=== PATIENT | male | born 1970 | race American Indian/Alaskan Native ===

== ENCOUNTER 2017-07-21 13:54 | Emergency (ER) | payer OTHER ==
--- NOTE | 2017-07-21 14:12 | ED PDOC ---
Arrival/HPI - General Chief Complaint: Chest Pain Time Seen by Provider: 07/21/17 13:56 Historian: Patient - Critical Care Narrative Critical Care (Text): 07/21/17 14:09 47 year old male wth history of asthma, tobacco and marijuana smoker presented with chest pain that started last night at 11 pm. Pain is localized to left chest and non radiating. Pt describes as soreness, sharp. Denies any shortness of breah, cough or fever. He woke up with similar pain this morning. Past Medical History - Provider Review Nursing Documentation Reviewed: Yes - Travel History Have you recently traveled outside [place] w/in the past 3 mons?: No - Past History Past History: Non-Contributing (Asthma) - Infectious Disease Hx of Infectious Diseases: None - Pulmonary Hx Asthma: Yes - Renal Hx Renal Disorder: No - Musculoskeletal/Rheumatological Hx Musculoskeletal Disorders: No - Genitourinary/Gynecological Hx Genitourinary Disorders: No - Psychiatric Hx Psychophysiologic Disorder: No Hx Substance Use: Yes - Anesthesia Hx Anesthesia: No Family/Social History Family/Social History: Diabetes Smoking Status: Heavy Smoker > 10 Cigarettes Daily Hx Alcohol Use: No Hx Substance Use: Yes Substance used: Marijuana Allergies/Home Meds Allergies/Adverse Reactions: Allergies No Known Allergies Allergy (Verified 07/21/17 14:03) Home Medications: Home Meds Medication Instructions Recorded Confirmed No Known Home Med 07/21/17 07/21/17 Review of Systems - Physician Review All systems were reviewed & negative as marked: Yes - Review of Systems Constitutional: Normal Eyes: Normal ENT: Normal Respiratory: Normal Cardiovascular: Chest Pain Gastrointestinal: Normal Genitourinary Male: Normal Musculoskeletal: Normal Skin: Normal Neurological: Normal Endocrine: Normal Hemo/Lymphatic: Normal Psychiatric: Normal Physical Exam Vital Signs Temp Pulse Resp BP Pulse Ox 07/21/17 15:48 70 18 127/86 98 07/21/17 14:00 98.3 F 77 16 150/85 98 07/21/17 13:54 99.1 F 77 18 150/85 99 Temperature: Afebrile Blood Pressure: Normal Pulse: Regular Respiratory Rate: Normal Appearance: Positive for: Well-Appearing, Non-Toxic, Comfortable Pain Distress: None Mental Status: Positive for: Alert and Oriented X 3 - Systems Exam Head: Present: Atraumatic, Normocephalic Pupils: Present: PERRL Extroacular Muscles: Present: EOMI Conjunctiva: Present: Normal Mouth: Present: Moist Mucous Membranes Neck: Present: Normal Range of Motion Respiratory/Chest: Present: Clear to Auscultation, Good Air Exchange. No: Respiratory Distress, Accessory Muscle Use Cardiovascular: Present: Regular Rate and Rhythm, Normal S1, S2. No: Murmurs Abdomen: No: Tenderness, Distention, Peritoneal Signs Back: Present: Normal Inspection Upper Extremity: Present: Normal Inspection. No: Cyanosis, Edema Lower Extremity: Present: Normal Inspection. No: Edema Neurological: Present: GCS=15, CN II-XII Intact, Speech Normal Skin: Present: Warm, Dry, Normal Color. No: Rashes Psychiatric: Present: Alert, Oriented x 3, Normal Insight, Normal Concentration Medical Decision Making ED Course and Treatment: 07/21/17 14:16 47 year old male with chest pain r/o MT Plan: check labs, ekg, pain control ,cxr and reassess 07/21/17 14:27 EKG: NSR 77 bpm left axis 07/21/17 16:25 Addendum: pt is feeling better and is pain free. Pt can be discharged home. - Lab Interpretations Lab Results: 07/21/17 14:40 07/21/17 14:40 Lab Results 07/21/17 14:40: Sodium 144, Potassium 3.6, Chloride 108 H, Carbon Dioxide 26, Anion Gap 13, BUN 15, Creatinine 1.1, Est GFR ( Amer) > 60, Est GFR (Non- Af Amer) > 60, Random Glucose 113 H, Calcium 8.7, Total Bilirubin 0.3, AST 21, ALT 27, Alkaline Phosphatase 55, Lactate Dehydrogenase 337, Total Creatine Kinase 168, Troponin I < 0.01, Total Protein 6.6, Albumin 3.7, Globulin 2.9, Albumin/Globulin Ratio 1.3 07/21/17 14:40: WBC 5.1, RBC 5.29, Hgb 16.2, Hct 46.3, MCV 87.5, MCH 30.6, MCHC 35.0, RDW 13.8, Plt Count 220, MPV 9.8, Gran % 57.8, Lymph % (Auto) 32.9, [place] % (Auto) 6.0, Eos % (Auto) 2.9, Baso % (Auto) 0.4, Gran # 2.97, Lymph # (Auto) 1.7, [place] # (Auto) 0.3, Eos # (Auto) 0.2, Baso # (Auto) 0.02 - RAD Interpretation Radiology Orders: 07/21/17 14:23 CXR [CHEST PORTABLE] [RAD] Stat - Medication Orders Current Medication Orders: Discontinued Medications Aspirin (Aspirin) 325 mg PO STAT STA Stop: 07/21/17 14:19 Last Admin: 07/21/17 14:35 Dose: 325 mg Ketorolac Tromethamine (Toradol) 30 mg IVP STAT STA Stop: 07/21/17 15:34 Last Admin: 07/21/17 15:54 Dose: 30 mg MAR Pain Assessment Document 07/21/17 15:54 SRE (Rec: 07/21/17 15:55 SRE [id number]) Pain Reassessment Is this a pain reassessment? Yes Sleep Is patient sleeping during reassessment? No Presence of Pain Presence of Pain Yes Pain Scale Used Pain Scale Used Numeric Location Pain Location Body Site Chest Description Description Intermittent IVP Administration Document 07/21/17 15:54 SRE (Rec: 07/21/17 15:55 SRE [id number]) Charges for Administration # of IVP Administrations 1 Disposition/Present on Arrival - Present on Arrival Any Indicators Present on Arrival: No History of DVT/PE: No History of Uncontrolled Diabetes: No Urinary Catheter: No History of Decub. Ulcer: No History Surgical Site Infection Following: None - Disposition Have Diagnosis and Disposition been Completed?: Yes Diagnosis: Chest pain in adult Disposition: HOME/ ROUTINE Disposition Time: 16:28 Patient Plan: Discharge Patient Problems: Current Active Problems Problem Status Onset Chest pain in adult Acute Condition: IMPROVED Discharge Instructions (ExitCare): Chest Pain (ED) Additional Instructions: Roopa Wise, thank you for letting us take care of you today. Your provider was [Chapincito Gastelum]. You were treated for [Chest pain]. The emergency medical care you received today was directed at your acute symptoms. If you were prescribed any medication, please fill it and take as directed. It may take several days for your symptoms to resolve. Return to the Emergency Department if your symptoms worsen, do not improve, or if you have any other problems. Please contact your doctor or call one of the physicians/clinics you have been referred to that are listed on the Patient Visit Information form that is included in your discharge packet. Bring any paperwork you were given at discharge with you along with any medications you are taking to your follow up visit. Our treatment cannot replace ongoing medical care by a primary care provider (PCP) outside of the emergency department. Thank you for allowing the [facility] team to be part of your care today. If you had an X-Ray or CT scan: A Radiologist will review the ED reading if any change in treatment is needed we will contact you. If you had a blood, urine, or wound culture: It will take several days for the results, if any change in treatment is needed we will contact you. If you had an STI test: It will take 48 hours for the results. Please call after 1 week if you have not heard back. Referrals: [facility] Sanders Remando, [Primary Care Provider] - Follow up with primary Forms: [employer] (Azeri)
[2017-07-21 14:28] VITALS: TEMP 98.3; O2SAT 98
[2017-07-21 14:52] LABS: BASO # 0.02 K/mm3 (0.0-2.0); BASO % 0.4 % (0.0-3.0); EOS # 0.2 (0.0-0.7); EOS % 2.9 % (1.5-5.0); GRAN # 2.97 (1.4-6.5); GRAN % 57.8 % (50.0-68.0); HEMOGLOBIN 16.2 g/dL (14.0-18.0); LYMPH # 1.7 (1.2-3.4); LYMPH % 32.9 % (22.0-35.0); MEAN CELL VOLUME 87.5 fl (80.0-105.0); MEAN CORPUSCULAR HEMOGLOBIN 30.6 pg (25.0-35.0); MEAN PLATELET VOLUME 9.8 fl (7.0-11.0); MONO # 0.3 (0.1-0.6); RBC 5.29 10^6/uL (3.5-6.1); RED CELL DISTRIBUTION WIDTH 13.8 % (11.5-14.5); WHITE BLOOD COUNT 5.1 10^3/ul (4.5-11.0)
[2017-07-21 15:01] LABS: ALB/GLOB RATIO 1.3 (1.1-1.8); ALBUMIN 3.7 g/dL (3.0-4.8); ALT/SGPT 27 U/L (7-56); AST/SGOT 21 U/L (17-59); BLOOD UREA NITROGEN 15 mg/dL (7-21); CALCIUM 8.7 mg/dL (8.4-10.5); GFR AFRICAN-AMERICAN > 60; GFR NON-AFRICAN AMERICAN > 60
--- NOTE | 2017-07-21 15:07 | RAD ---
HISTORY: chest pain on monitor COMPARISON: No prior. FINDINGS: LUNGS: No active pulmonary disease. PLEURA: No significant pleural effusion identified, no pneumothorax apparent. CARDIOVASCULAR: Normal. OSSEOUS STRUCTURES: No significant abnormalities. VISUALIZED UPPER ABDOMEN: Normal. OTHER FINDINGS: None. IMPRESSION: No active disease.
[2017-07-21 15:13] LABS: TROPONIN I < 0.01 ng/mL
[2017-07-21 15:49] VITALS: PULSE 70
--- NOTE | 2017-07-21 16:33 | ED PDOC ---
Arrival/HPI - General Chief Complaint: Chest Pain Time Seen by Provider: 07/21/17 13:56 Past Medical History - Travel History Have you recently traveled outside [place] w/in the past 3 mons?: No - Past History Past History: Non-Contributing (Asthma) - Infectious Disease Hx of Infectious Diseases: None - Pulmonary Hx Asthma: Yes - Renal Hx Renal Disorder: No - Musculoskeletal/Rheumatological Hx Musculoskeletal Disorders: No - Genitourinary/Gynecological Hx Genitourinary Disorders: No - Psychiatric Hx Psychophysiologic Disorder: No Hx Substance Use: Yes - Anesthesia Hx Anesthesia: No Family/Social History Family/Social History: Diabetes Smoking Status: Heavy Smoker > 10 Cigarettes Daily Hx Alcohol Use: No Hx Substance Use: Yes Substance used: Marijuana Allergies/Home Meds Allergies/Adverse Reactions: Allergies No Known Allergies Allergy (Verified 07/21/17 14:03) Home Medications: Home Meds Medication Instructions Recorded Confirmed No Known Home Med 07/21/17 07/21/17 Physical Exam Vital Signs Temp Pulse Resp BP Pulse Ox 07/21/17 15:48 70 18 127/86 98 07/21/17 14:00 98.3 F 77 16 150/85 98 07/21/17 13:54 99.1 F 77 18 150/85 99 Medical Decision Making - Lab Interpretations Lab Results: 07/21/17 14:40 07/21/17 14:40 Lab Results 07/21/17 14:40: Sodium 144, Potassium 3.6, Chloride 108 H, Carbon Dioxide 26, Anion Gap 13, BUN 15, Creatinine 1.1, Est GFR ( Amer) > 60, Est GFR (Non- Af Amer) > 60, Random Glucose 113 H, Calcium 8.7, Total Bilirubin 0.3, AST 21, ALT 27, Alkaline Phosphatase 55, Lactate Dehydrogenase 337, Total Creatine Kinase 168, Troponin I < 0.01, Total Protein 6.6, Albumin 3.7, Globulin 2.9, Albumin/Globulin Ratio 1.3 07/21/17 14:40: WBC 5.1, RBC 5.29, Hgb 16.2, Hct 46.3, MCV 87.5, MCH 30.6, MCHC 35.0, RDW 13.8, Plt Count 220, MPV 9.8, Gran % 57.8, Lymph % (Auto) 32.9, [place] % (Auto) 6.0, Eos % (Auto) 2.9, Baso % (Auto) 0.4, Gran # 2.97, Lymph # (Auto) 1.7, [place] # (Auto) 0.3, Eos # (Auto) 0.2, Baso # (Auto) 0.02 - RAD Interpretation Radiology Orders: 07/21/17 14:23 CXR [CHEST PORTABLE] [RAD] Stat - Medication Orders Current Medication Orders: Discontinued Medications Aspirin (Aspirin) 325 mg PO STAT STA Stop: 07/21/17 14:19 Last Admin: 07/21/17 14:35 Dose: 325 mg Ketorolac Tromethamine (Toradol) 30 mg IVP STAT STA Stop: 07/21/17 15:34 Last Admin: 07/21/17 15:54 Dose: 30 mg MAR Pain Assessment Document 07/21/17 15:54 SRE (Rec: 07/21/17 15:55 SRE [id number]) Pain Reassessment Is this a pain reassessment? Yes Sleep Is patient sleeping during reassessment? No Presence of Pain Presence of Pain Yes Pain Scale Used Pain Scale Used Numeric Location Pain Location Body Site Chest Description Description Intermittent IVP Administration Document 07/21/17 15:54 SRE (Rec: 07/21/17 15:55 SRE [id number]) Charges for Administration # of IVP Administrations 1 Disposition/Present on Arrival - Present on Arrival Any Indicators Present on Arrival: No History of DVT/PE: No History of Uncontrolled Diabetes: No Urinary Catheter: No History of Decub. Ulcer: No History Surgical Site Infection Following: None - Disposition Have Diagnosis and Disposition been Completed?: Yes Diagnosis: Chest pain in adult Disposition: HOME/ ROUTINE Disposition Time: 16:34 Patient Problems: Current Active Problems Problem Status Onset Chest pain in adult Acute Condition: IMPROVED Discharge Instructions (ExitCare): Chest Pain (ED) Additional Instructions: Roopa Wise, thank you for letting us take care of you today. Your provider was [Chapincito Gastelum]. You were treated for [Chest pain]. The emergency medical care you received today was directed at your acute symptoms. If you were prescribed any medication, please fill it and take as directed. It may take several days for your symptoms to resolve. Return to the Emergency Department if your symptoms worsen, do not improve, or if you have any other problems. Please contact your doctor or call one of the physicians/clinics you have been referred to that are listed on the Patient Visit Information form that is included in your discharge packet. Bring any paperwork you were given at discharge with you along with any medications you are taking to your follow up visit. Our treatment cannot replace ongoing medical care by a primary care provider (PCP) outside of the emergency department. Thank you for allowing the [facility] team to be part of your care today. If you had an X-Ray or CT scan: A Radiologist will review the ED reading if any change in treatment is needed we will contact you. If you had a blood, urine, or wound culture: It will take several days for the results, if any change in treatment is needed we will contact you. If you had an STI test: It will take 48 hours for the results. Please call after 1 week if you have not heard back. Referrals: [email or web address] Tommy Req, [Primary Care Provider] - Follow up with primary Forms: [employer] (Hebrew)
[2017-07-21 16:51] VITALS: BP 127/76; RESP 16
--- NOTE | 2017-07-22 08:22 | CARD ---
APPROVED REPORT EKG Measurement Heart [id number] <Conclusion> Normal sinus rhythm Nonspecific ST abnormality
== END 2017-07-21 16:51 | disposition home or self-care (01) ==
LOC: ED 13:54
DX: R07.9 Chest pain, unspecified (principal); J45.909 Unspecified asthma, uncomplicated; F17.210 Nicotine dependence, cigarettes, uncomplicated; F12.10 Cannabis abuse, uncomplicated
CPT/HCPCS: 71045; 80053; 82550; 83615; 84484; 85025; 93005; 96374; 99284; J1885